=== PATIENT | female | born 1955 | race Caucasian/White ===

== ENCOUNTER → 2016-12-08 | Outpatient (CLI) | payer OTHER ==
[~2016-12-08] MED LIST: LORT7.5T3; NASAREL; SERT100; [UNRECOGNIZED DRUG - REMARK]
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
== END ==
LOC: HRAD 09:33
DX: M54.5 Low back pain (principal); M54.2 Cervicalgia
CPT/HCPCS: 72050; 72110